=== PATIENT | female | born 1985 ===

== ENCOUNTER 2022-12-30 08:58 | Outpatient (CLI) | payer OTHER | END 2022-12-30 10:29 | disposition home or self-care (01) | LOC: PRENATAL 08:58 | PROVIDERS: ATTEND Obstetrics & Gynecology Maternal & Fetal Medicine | DX: O36.80X0 Pregnancy with inconclusive fetal viability, not applicable or unspecified (principal); O09.529 Supervision of elderly multigravida, unspecified trimester; Z14.8 Genetic carrier of other disease; Z3A.11 11 weeks gestation of pregnancy ==

== ENCOUNTER 2023-03-03 13:03 | Outpatient (CLI) | payer OTHER | END 2023-03-03 17:10 | disposition home or self-care (01) | LOC: PRENATAL 13:03 | PROVIDERS: ATTEND Obstetrics & Gynecology Maternal & Fetal Medicine | DX: O35.9XX0 Maternal care for (suspected) fetal abnormality and damage, unspecified, not applicable or unspecified (principal); O35.3XX0 Maternal care for (suspected) damage to fetus from viral disease in mother, not applicable or unspecified; O09.529 Supervision of elderly multigravida, unspecified trimester; O44.00 Complete placenta previa NOS or without hemorrhage, unspecified trimester; Z3A.20 20 weeks gestation of pregnancy ==

== ENCOUNTER 2023-05-25 10:08 | Outpatient (CLI) | payer OTHER | END 2023-05-25 10:14 | disposition home or self-care (01) | LOC: PRENATAL 10:08 | PROVIDERS: ATTEND Obstetrics & Gynecology Maternal & Fetal Medicine | DX: O26.849 Uterine size-date discrepancy, unspecified trimester (principal); O36.8199 Decreased fetal movements, unspecified trimester, other fetus; O09.529 Supervision of elderly multigravida, unspecified trimester; Z3A.32 32 weeks gestation of pregnancy ==